=== PATIENT | male | born 1975 | race Caucasian/White ===

== ENCOUNTER 2024-03-05 17:46 | Emergency (ER) | payer SELFPAY ==
[~2024-03-05] VITALS: Ht 157.5 cm; Wt 135.0 kg
[2024-03-05 17:49] VITALS: BP 181/110; PULSE 108; RESP 18; TEMP 98.5; O2SAT 98
[2024-03-05] MEDS ORDERED: AMOX1TAB16 MT (18:34)
== END 2024-03-05 19:14 | disposition home or self-care (01) ==
LOC: ER 17:46
DX: K04.7 Periapical abscess without sinus (principal); I10 Essential (primary) hypertension
CPT/HCPCS: 99283